=== PATIENT | male | born 2000 | race Two or more races ===

== ENCOUNTER 2020-10-06 09:01 | Outpatient (CLI) | payer OTHER | END 2020-10-06 09:02 | disposition critical access hospital (66) | LOC: EMS 09:01 | DX: M54.5 Low back pain (principal); M79.652 Pain in left thigh | CPT/HCPCS: A0425; A0429 ==

== ENCOUNTER 2020-10-06 09:18 | Emergency (ER) | payer OTHER ==
[2020-10-06] MEDS: KETOROLAC 60 MG/2 ML VIAL IM STA (10:01)
[2020-10-06] MEDS: CYCLOBENZAPRINE 10 MG TABLET PO STA (10:03)
[2020-10-06] MEDS: HYDROmorphone 1 MG/ML CARPUJECT IM STA (10:03)
--- NOTE | 2020-10-06 10:27 | ED Physician Documentation ---
History of Present Illness - Stated complaint Stated Complaint: BACK PX - Chief complaint Chief Complaint: Back Pain - History obtained from History obtained from: Patient - Additonal information Additional information: Pt c/o L low back pain after doing back squats yesterday. He states he felt a little pain in the L low back musculature after completing the set, but didn't think much of it. Overnight, the pt noticed the area became increasingly tight and painful, and now, he can hardly move, because it exacerbates the pain. No pain in spine. No loss of bowel or bladder control. No fever or chills. No urinary sx. No sciatica sx. No sensory or motor loss in lower extremities. No other complaints at this time. Review of Systems Ten Systems: 10 systems reviewed and negative Constitutional: reports: Reviewed and negative Eyes: reports: Reviewed and negative Ears: reports: Reviewed and negative Nose: reports: Reviewed and negative Throat: reports: Reviewed and negative Cardiac: reports: Reviewed and negative Respiratory: reports: Reviewed and negative GI: reports: Reviewed and negative : reports: Reviewed and negative Skin: reports: Reviewed and negative Musculoskeletal: reports: Back pain Neurologic: reports: Reviewed and negative Psychiatric: reports: Reviewed and negative Endocrine: reports: Reviewed and negative Immunocompromised: reports: Reviewed and negative PD PAST MEDICAL HISTORY - Present Medications Home Medications: Ambulatory Orders Medication Instructions Recorded Confirmed Cyclobenzaprine [Flexeril] 10 mg PO TID PRN #20 tablet 10/06/20 HYDROcod/ACETAM 5/325 [[place] 5/325] 1 - 2 tablet PO Q6H PRN #14 tablet 10/06/20 Ibuprofen [Motrin] 1 tablet PO Q8H PRN #30 tablet 10/06/20 - Allergies Allergies/Adverse Reactions: Allergies Allergy/AdvReac Type Severity Reaction Status Date / Time No Known Drug Allergies Allergy Verified 10/06/20 09:33 - Social History Does the pt smoke?: No Smoking Status: Never smoker Does the pt drink ETOH?: Yes Does the pt have substance abuse?: No PD ED PE NORMAL - Vitals Vital signs reviewed: Yes - General General: Alert and oriented X 3, No acute distress (Pt appears moderately uncomfortable with movement of torso) - HEENT HEENT: Atraumatic, PERRL, EOMI, Moist mucous membranes - Neck Neck: Supple, no meningeal sign, No bony TTP - Cardiac Cardiac: Strong equal pulses - Respiratory Respiratory: No respiratory distress - Abdomen Abdomen: Soft, Non tender, Non distended - Back Back: No spinal TTP, Other (Tenderness over L lumbar musculature.) - Derm Derm: Normal color, Warm and dry, No rash - Extremities Extremities: No deformity, No edema - Neuro Neuro: Alert and oriented X 3, manager quality 2-12 intact, No motor deficit, No sensory deficit, Normal speech - Psych Psych: Normal mood, Normal affect Results - Vitals Vitals: Vital Signs - 24 hr 10/06/20 10/06/20 09:25 10:45 Temperature 37.3 C 37.4 C Heart Rate 86 78 Respiratory 16 12 Rate Blood Pressure 142/89 H 140/73 H O2 Saturation 100 100 Oxygen O2 Source Room air PD MEDICAL DECISION MAKING - ED course Complexity details: considered differential, d/w patient ED course: I d/w pt that his history and sx are most indicative of muscular spasm. Pt was treated symptomatically in the ED, with improvement. We have discussed symptomatic management at home, as well as the usual indications for follow-up and return. Departure - Departure Disposition: 01 Home, Self Care Clinical Impression: Back spasm Back pain Qualifiers: Back pain location: low back pain Chronicity: acute Back pain laterality: left Sciatica presence: with sciatica Sciatica laterality: sciatica of left side Qualified Code(s): M54.42 - Lumbago with sciatica, left side Condition: Stable Instructions: ED Low Back Pain Injury Prescriptions: Cyclobenzaprine [Flexeril] 10 mg PO TID PRN #20 tablet PRN Reason: Spasms Ibuprofen [Motrin] 1 tablet PO Q8H PRN #30 tablet PRN Reason: PAIN &/OR FEVER HYDROcod/ACETAM 5/325 [[place] 5/325] 1 - 2 tablet PO Q6H PRN #14 tablet PRN Reason: Pain Forms: Activity restrictions Discharge Date/Time: 10/06/20 10:49
[2020-10-06 10:46] VITALS: BP 140/73
== END 2020-10-06 10:49 | disposition home or self-care (01) ==
LOC: ED 09:18
DX: M54.42 Lumbago with sciatica, left side (principal)
CPT/HCPCS: 96372; 99283; 99284; A9270; J1170

== ENCOUNTER 2021-10-10 20:25 | Outpatient (CLI) | payer OTHER | END 2021-10-10 20:26 | disposition critical access hospital (66) | LOC: EMS 20:25 | DX: M54.50 Low back pain, unspecified (principal) | CPT/HCPCS: A0425; A0427 ==

== ENCOUNTER 2022-02-22 14:10 | Outpatient (CLI) | payer OTHER ==
--- NOTE | 2022-02-22 16:03 | MRI Report ---
PROCEDURE: LUMBAR SPINE WO INDICATIONS: LOW BACK PAIN TECHNIQUE: Noncontrast sagittal T1 spin echo and T2 fast echo, sagittal STIR, axial T1 and T2 fast spin echo thr ough the lumbar spine. In cases with scoliosis, additional coronal T2 fast spin echo may be performe d. COMPARISON: None. FINDINGS: Image quality: Excellent. Alignment and Curvature: No plain films are available for comparison. Thus, for numbering purposes, 5 lumbar type vertebral bodies will be presumed for the current report. This should be confirmed with plain film correlation prior to any lumbar spinal intervention. There is loss of normal lumbar lordo sis. There is roughly 5 mm of retrolisthesis of L5 on S1. Bone Marrow: Marrow is of normal overall signal. No acute vertebral body compression fractures. Mi ld reactive signal within the end but adjacent to the L5-S1 intervertebral disc. Spinal Cord: Conus medullaris terminates at the upper L2 level. Visualized cord demonstrates normal signal and size. Paraspinous Soft Tissues: No paravertebral masses. T12-L1: Normal in appearance. L1-L2: Normal in appearance. L2-L3: Mild disc height loss and desiccation. Mild diffuse disc bulge. Mild bilateral facet hypert rophy. Mild canal stenosis. Mild bilateral foraminal stenosis L3-L4: Mild disc height loss and desiccation. Mild diffuse disc bulge. Mild epidural lipomatosis. M ild canal stenosis. Mild bilateral foraminal stenosis. L4-L5: Mild disc height loss and desiccation. No significant canal, nor foraminal stenosis. L5-S1: Moderate disc height loss and desiccation. Mild diffuse disc bulge with superimposed left pa racentral protrusion. Mild bilateral facet hypertrophy. Mild canal stenosis. Mild bilateral foraminal stenosis. Mild posterior deviation of the left S1 nerve root within the lateral recess. IMPRESSION: 1. Multilevel degenerative disc and facet disease. 2. Mild posterior deviation of the left S1 nerve root within the lateral recess at L5-S1. Recommend c orrelation with clinical symptoms to ascertain relevance of this finding. 3. Five lumbar type vertebral bodies were presumed for the purposes of the current report. Correlati on with plainfilms for numbering purposes is recommended prior to any lumbar spinal intervention. Reviewed by: Beka Napoles MD on 02/22/2022 4:02 PM PST Approved by: Beka Napoles MD on 02/22/2022 4:02 PM PST Station ID: [id number]
== END 2022-02-22 14:11 | disposition home or self-care (01) ==
LOC: DI 14:10
PROVIDERS: ATTEND Family Medicine
DX: M51.27 Other intervertebral disc displacement, lumbosacral region (principal); M51.36 Other intervertebral disc degeneration, lumbar region; M48.061 Spinal stenosis, lumbar region without neurogenic claudication; M51.37 Other intervertebral disc degeneration, lumbosacral region; M48.07 Spinal stenosis, lumbosacral region; M47.816 Spondylosis without myelopathy or radiculopathy, lumbar region; M47.817 Spondylosis without myelopathy or radiculopathy, lumbosacral region

== ENCOUNTER 2023-07-11 15:38 | Outpatient (CLI) | payer OTHER ==
--- NOTE | 2023-07-12 11:05 | MRI Report ---
Wrist RT WO CLINICAL HISTORY: 23 years of age, Male, RIGHT WRIST PAIN. COMPARISON: None Technique: Multisequence, multiplanar MRI of the right wrist was performed Without contrast. IV CONTRAST: Not given FINDINGS: Marrow, osseous and cartilaginous structures: There is marked ulnar negative variance with radial ang ulation of the distal ulnar articular surface. No marrow edema. Punctate multifocal T2 hyperintensity within the capitate, nonspecific. No acute fracture. Triangular fibrocartilage: The central disc is thickened, but is intact. The ulnar foveal attachment are unremarkable. Ligaments: Widening of the scapholunate interval. The scapholunate ligament is intact but demonstrate s intermediate signal, representing prior sprain. The lunotriquetral ligament is intact. Carpal tunnel: The flexor tendons are intact without evidence of tendinosis, tenosynovitis, or discre te tear. Extensor tendons: The ulnar groove appears hypoplastic. Ulnar dislocation of the extensor carpi ulnar is. Nerves: The median and ulnar nerves are normal in course, signal and thickness. The contents of Guyon 's canal are normal. Masses: No ganglion cyst. IMPRESSION: 1.Marked ulnar negative variance with radial angulation the distal ulnar articular surface. 2.Widening of the scapholunate interval with prior sprain of the scapholunate ligament. No full thick ness tear of the scapholunate ligament. 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 Reviewed by: Whit Huang MD on 07/12/2023 11:04 AM PDT Approved by: Whit Huang MD on 07/12/2023 11:04 AM PDT Station ID: [id number]
== END 2023-07-11 15:39 | disposition home or self-care (01) ==
LOC: DI 15:38
PROVIDERS: ATTEND Family Medicine
DX: R93.6 Abnormal findings on diagnostic imaging of limbs (principal)